=== PATIENT | female | born 1980 | race Caucasian/White ===

== ENCOUNTER 2024-06-15 13:35 | Emergency (ER) | payer MEDICAID ==
[~2024-06-15] VITALS: Ht 162.6 cm; Wt 91.0 kg
[2024-06-15 13:45] VITALS: BP 130/70; PULSE 82; RESP 16; TEMP 98.1; O2SAT 100
[2024-06-15] MEDS ORDERED: SODIUM CHLORIDE 0.9% 1,000 ML IV ONE (13:45)
[2024-06-15 14:47] LABS: CHLORIDE 108 mEq/L (98-107); POTASSIUM 3.6 mEq/L (3.5-5.1); SODIUM 141 mEq/L (136-145)
[2024-06-15 14:48] LABS: CARBON DIOXIDE 24 mEq/L (21-32)
[2024-06-15 14:49] LABS: CALCIUM 8.9 mg/dL (8.7-10.4)
[2024-06-15 14:53] LABS: CREATININE 0.7 mg/dL (0.6-1.0)
[2024-06-15 14:54] LABS: GLUCOSE 113 mg/dL (70-105); HCG SCREEN NEGATIVE; UREA NITROGEN BLOOD 10 mg/dL (9-23)
[2024-06-15 17:14] LABS: BASOPHILS % 0.5 % (0.0-2.0); DIFFERENTIAL COMMENT 0; EOSINOPHILS % 0.7 % (0.0-5.0); HEMATOCRIT. 32.1 % (36.0-48.0); HEMOGLOBIN. 9.9 g/dL (12.0-16.0); LYMPHOCYTES % 23.5 % (20.0-50.0); MEAN CORPUSCULAR HEMOGLOBIN 23.4 pg (28.0-32.0); MEAN CORPUSCULAR HGB CONC 30.7 g/dL (31.0-37.0); MEAN CORPUSCULAR VOLUME 76.3 fL (81.0-99.0); MEAN PLATELET VOLUME 10.2 fl (7.4-10.4); MONOCYTES % 4.5 % (2.0-8.0); NEUTROPHILS % 70.8 % (40.0-76.0); RED BLOOD CELL COUNT 4.21 mill/uL (4.2-5.4); RED CELL DISTRIBUTION WIDTH 17.4 % (11.6-14.6); WHITE BLOOD COUNT 9.4 x1000/uL (4.5-11.0)
[2024-06-15 17:16] LABS: PLATELET 229 x1000/uL (130-400)
== END 2024-06-15 17:52 | disposition home or self-care (01) ==
LOC: ER 13:37
DX: R55 Syncope and collapse (principal); D64.9 Anemia, unspecified
CPT/HCPCS: 99283; 80048; 84703; 85025; 36415; J7030